=== PATIENT | female | born 1975 | race Caucasian/White ===

== ENCOUNTER 2024-06-15 17:47 | Observation (INO) | payer BC, SELFPAY ==
[2024-06-15] VITALS (8 sets, daily range): BP systolic 107–128; BP diastolic 54–82; BMI 30.1; BMI 31.6
[2024-06-15 14:11] LABS: % Basophils 0.9 % (0-2); % Eosinophils 2.1 % (0-6); % Immature Granulocytes 0.2 % (0-0.5); % Lymphocytes 41.5 % (20.5-51.1); % Monocytes 8.4 % (1.7-9.3); % Neutrophils 46.9 % (42.2-75.2); Absolute Basophils 0.1 10^3/uL (0-0.2); Absolute Eosinophils 0.1 10^3/uL (0-0.7); Absolute Lymphocytes 2.3 10^3/uL (1.2-3.4); Absolute Monocytes 0.5 10^3/uL (0.1-0.6); Absolute Neutrophils 2.6 10^3/uL (1.4-6.5); Hematocrit 40.2 % (37.0-47.0); Hemoglobin 13.9 g/dL (12.0-16.0); Mean Corp Hgb Conc. 34.6 g/dL (33.0-37.0); Mean Corpuscular Hgb 31.8 pg (27.0-31.0); Nucleated Red Blood Cells % 0 %; Platelet Count 215 10^3/uL (130-400); Red Blood Cell Count 4.37 10^6/uL (4.20-5.40); Red Cell Dist. Width 12.3 % (11.5-14.5); White Blood Cell Count 5.6 10^3/uL (4.8-10.8)
--- NOTE | 2024-06-15 14:14 | ED.GENMED ---
History of Present Illness
General
Chief Complaint: Back Pain
Source: patient
Exam Limitations: none
Time Seen by Provider: 06/15/24 13:28
Nursing documentation reviewed up to this point in time: agreed with
History of Present Illness
History of Present Illness:
49-year-old female with no reported chronic medical issues presents to the emergency room for evaluation of right arm pain, weakness, numbness as well as pain in the upper back. Patient reports that 2 weeks ago she started having some aching pain
in her right elbow in the absence of any trauma. She says that yesterday around 10 PM she started to notice pain in between her shoulder blades in her back and radiating down towards her fingertips in the right arm; she also has some mild pain in
the right side of her chest. She says that in addition to pain she says she feels significant weakness in the right arm and paresthesias. She says she feels some mild numbness in paresthesias in the right leg as well. She denies any palpitations.
She denies any shortness of breath. She denies any headache. She denies any change in her vision or speech. She denies any dizziness. No nausea or vomiting. She denies any neck pain. She denies having had similar symptoms in the past.
Past History
Past History
ED Past Medical History: None; Negative Asthma, HTN, Hypercholesterolemia or NIDDM
ED Past Surgical History: None
Social History
Tobacco: Non-smoker
Alcohol: Occasional
Personal:
Living: with family
Review of Systems
Review of Systems
All Other Systems: ROS reviewed and negative except as documented in HPI and ROS
Constitutional: Denies fever
Respiratory: Denies trouble breathing
Cardiac: Reports chest pain; Denies palpitations
ABD/GI: Denies abdominal pain, nausea or vomiting
: Denies flank pain
Musculoskeletal: Reports back pain; Denies edema or neck pain
Neurological: Reports weakness and numbness; Denies dizzy or headache
Phy Exam
Physical Exam
Physical Exam:
General: Awake, alert, oriented x3; no acute distress
Head: Normocephalic, atraumatic
Eyes: Conjunctiva normal, EOMI, pupils equal round and reactive to light bilaterally
Throat: Airway intact, handling secretions
Neck: Trachea midline, supple without meningismus, no tenderness in the cervical spine
Lungs: Clear to auscultation bilaterally, no wheezing, rales, rhonchi
Heart: Regular rate and rhythm, no murmurs, gallops, or rubs appreciated
Abd: Soft, non distended, nontender
Back: No midline tenderness in the thoracic or lumbar spine, mild tenderness medial aspect of the right scapula
Neuro: Cranial nerves intact 2 through 12, speech is fluid without dysarthria or aphasia, no limb ataxia, she does have weakness right upper and lower extremity�4+/5 proximally and distally right upper and lower extremity when compared to the left
upper and lower extremity which are both 5/5
Skin: no rash
Extremities: No edema in extremities, equal pulses in all extremities; she has no joint effusion in the right elbow, full range of motion without pain, no reproducible tenderness
Scores
NIH Stroke Score
Level of Consciousness: 0 - Alert
LOC Questions: 0-Answers both correctly
LOC Commands: 0-Performs both correctly
Best Horizontal Gaze: 0-Normal
Visual Shultz: 0=Normal, no visual loss
Facial Palsy: 0=Normal, symmetrical
Motor - Right Arm: 1=Drift < 10 seconds
Motor - Left Arm: 0=No drift 10 seconds
Motor - Right Le-Drift < 5 seconds
Motor - Left Le-No drift 5 seconds
Limb Ataxia: 0-Absent
Sensation: 0-Normal
Best Language: 0-No aphasia
Dysarthria: 0-Normal
Extinction and Inattention: 0-No abnormality
Total Score:: 2
Thrombolytic Contraindication
Inclusion and Exclusion criteria reviewed: Yes
Reasons for NON-Tx with Thrombolytics ABSOLUTE Exclusions: Greater than 4.5 hrs from onset of sxs
Heart Failure Risk
Heart Failure Risk Score: Not Applicable
Heart Score for Chest Pain Patients
STEMI patient?: Not applicable
Withdrawal Assessment of Alcohol
Withdrawal Assessment Completed?: Not applicable
Course
Orders/Labs/Results
Orders:
Orders
06/15/24 12:23
ECG [Electrocardiogram (*1)] Urgent
Reason for Study: Chest Pain
EKG- Treatment ONCE
06/15/24 13:32
CR Chest - 2 Views Urgent
Comment:
Reason For Exam: chest/scapular pain (right)
06/15/24 13:40
CT Head W/o Iv Contrast Urgent
Comment:
Reason For Exam: right sided weakness
06/15/24 13:42
NEUROLOGY CONSULT Urgent
Consulting Provider: Darren Chow
Was physician already notified: Yes
06/15/24 13:49
Complete Blood Count/With Diff Urgent
Comprehensive Metabolic Panel Urgent
D-Dimer Urgent
Troponin I Urgent
06/15/24 15:52
Clopidogrel Bisulfate [Plavix] 300 mg PO NOW STA
06/15/24 18:00
Atorvastatin [Lipitor] 40 mg PO QPM
06/16/24 08:00
Aspirin Low Dose EC [Aspir Low (Enteric Coated)] 81 mg PO DAILY
Clopidogrel Bisulfate [Plavix] 75 mg PO DAILY
Abnormal Lab Results
06/15/24
13:49
MCH 31.8 H pg
(27.0-31.0)
Carbon Dioxide 32 H mmol/L
(22-30)
06/15/24 13:49
06/15/24 13:49
Vital Signs
Initial and Last Documented VS:
Initial Vital Signs
Temp Pulse Resp BP Pulse Ox
36.5 C 71 16 121/72 99
06/15/24 12:29 06/15/24 12:29 06/15/24 12:29 06/15/24 12:29 06/15/24 12:29
Last Documented Vital Signs
Temp Pulse Resp BP Pulse Ox
36.5 C 67 21 109/73 96
06/15/24 12:29 06/15/24 16:00 06/15/24 16:00 06/15/24 16:00 06/15/24 16:00
MDM/Problems Addressed
Differential Diagnosis Includes:
Cervical/thoracic radiculopathy, atypical anginal symptom, PE, stroke, MS/demyelinating disease; very low clinical suspicion for aortic dissection
MDM/Problems Addressed:
49-year-old female presents for evaluation initially complaining of primarily pain in the back and arm but also disclosing weakness and paresthesias in the arm and the leg on the right. Vitals all normal. Physical exam as above�she does have some
subtle objective weakness in the right arm and the right leg. No other neurologic deficits noted. She had labs sent off including a CBC and a CMP which are pending. Added D-dimer and troponin. Check an EKG and a chest x-ray. Will check CT head.
Ostensibly symptoms could be from cervical or thoracic radiculopathy but right leg symptoms would be atypical. Somewhat lower concern for stroke given pain is a primary symptom but with objective unilateral weakness on exam I did discuss the case
with neurology for consultation. Monitor closely reassess after the above.
Labs reviewed: CBC and CMP unremarkable. D-dimer negative. Troponin undetectable. Chest x-ray reviewed by me shows no acute disease. CT head reviewed by me no acute disease. Case discussed with neurology who evaluated bedside and agree that
patient has weakness on the right side will treat with aspirin and Plavix admit to evaluate for possible CVA. Case discussed with hospitalist for admission.
*Radiology
Radiology exam reviewed: radiology read reviewed
*Pulse Oximetry
Patient hypoxic: no
*EKG
Interpreted by ED Provider?: Yes
Heart Rate: 71
Rate: normal
Rhythm: sinus
Newell: normal axis
Interval: normal interval
QRS Pattern: normal QRS
Ischemia: no ischemia
*Critical Care Note
Total Time (30-74mins, 75-104mins- exclusive of procedures): Not Applicable
Data Reviewed
Source: patient and records
Patient Management
Discussion with other providers: Hospitalist (Discussed with hospitalist) and Converting Operator (Discussed with neurologist)
Escalation/DeEscalation of care consider admission/obs:
Admission indicated
ED Attending Note
-
Portions of this chart may have been created with voice recognition software.� Occasional wrong word or��sound alike� substitutions may have occurred due to the inherent limitations of voice recognition software.
Discharge Plan
Departure
Patient Disposition: Admit
Date of Disposition: 06/15/24
Time of Disposition: 16:38
Admit to doctor: Mago
Presentation/result/management discussed w/ accepting MD/DO: Hospitalist
Discharge Problem:
CVA (cerebrovascular accident), Right arm pain
Prescriptions:
No Action
pantoprazole 40 MG tablet,delayed release (DR/EC)
40 mg PO DAILY Qty: 10 0RF
Referrals:
Vero Maurice PA [Family Provider] -
Interventions
Interventions:
*Risk Screen - Suicide Last Done: 06/15/24 12:29
*General Assessment Last Done: 06/15/24 12:29
*Neglect/Abuse Screening Last Done: 06/15/24 12:29
ED- Fall Risk Assessment Last Done: 06/15/24 13:29
*ED COVID-19 Vaccine History Last Done: 06/15/24 12:29
ED-Musculoskeletal Assessment Last Done: 06/15/24 13:46
Discharge Date and Time
Print Language: DJIBOUTIAN
[2024-06-15 14:26] LABS: ALT (SGPT) 34 U/L (0-35); AST (SGOT) 27 U/L (14-36); Albumin 4.4 g/dl (3.5-5.0); Alkaline Phosphatase 57 U/L (38-126); Blood Urea Nitrogen 14 mg/dl (7-17); Calcium 9.7 mg/dl (8.4-10.2); Carbon Dioxide 32 mmol/L (22-30); Chloride 104 mmol/L (98-107); Estimated Creatinine Clearance 75 ml/min; Glucose 85 mg/dl (70-99); Potassium 4.4 mmol/L (3.5-5.1); Sodium 142 mmol/L (135-145); Total Bilirubin 0.4 mg/dl (0.2-1.3); Total Protein 6.9 g/dl (6.3-8.2); eGFR > 60.00
[2024-06-15 14:27] LABS: D-Dimer 0.28 ug/mlFEU (0.00-0.50)
[2024-06-15 14:38] LABS: Troponin I < 0.012 ng/ml
--- NOTE | 2024-06-15 15:46 | CON.NEURO ---
Neuro Assessment/Plan
Assessment
mild right sided weakness since 10 pm last night
exam with subtle right sided weakness, right marionette line (below lip) flattening
concern is for lacunar stroke
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
load plavix 300
21 days of DAPT then stop plavix
Lipitor 40
admit for noncontrast MRI, MRA head/neck
not sure what to make of her right periscapular pain; no palpated trigger points or subluxation noted, and it doesn't seem to be a major part of the presentation
Consultation
Order
Date of Consultation: 06/15/24
Requesting Provider: Rome Zapata Jr
Reason for Consult: right sided weakness
Subjective/Objective
Subjective Data
Date of Service: June 15, 2024
She is a 49 year old right handed woman, 10 pm last night sudden pain around right shoulder blade, right upper extremity pain paresthesias and weakness, and right lower ext weakness.
today she reports today the pain is essentially resolved but she is still having the right sided weakness
she took full dose aspirin prior to coming to ED
Objective Data
Vital Signs
Temp Pulse Resp BP Pulse Ox
36.5 C 63 19 107/63 97
06/15/24 12:29 06/15/24 14:45 06/15/24 14:45 06/15/24 14:43 06/15/24 14:45
Lab Results
06/15/24 13:49
06/15/24 13:49
Sodium 142 mmol/L (135-145) 06/15/24 13:49
Potassium 4.4 mmol/L (3.5-5.1) 06/15/24 13:49
BUN 14 mg/dl (7-17) 06/15/24 13:49
Glucose 85 mg/dl (70-99) 06/15/24 13:49
Calcium 9.7 mg/dl (8.4-10.2) 06/15/24 13:49
Patient Allergies
No Known Allergies Allergy (Verified 06/15/24 12:32)
Physical Exam
-
AAO x3, speech clear, language intact
VFF, EOMI
flattening of right marionette line
trace RUE weakness, RLE weakness with foot drop
DTR 2+ symmetric
sensation intact touch pin temp vib
no tenderness right scapula/shoulder/paraspinal region
Elizabeth and Sena signs negative
Medications
-
Home Medications
�Medication �Instructions �Recorded
pantoprazole 40 mg tablet,delayed 40 mg PO DAILY Gastrointestinal 12/22/20
release issue #10 tabs
[2024-06-15] MEDS: PLAVIX 300 MG PO (16:55)
--- NOTE | 2024-06-15 17:06 | HPS.HSE ---
Family Physician
-
Family Physician: Vero Maurice
Chief Complaint
-
ight arm pain, weakness, numbneness
History of Present Illness
HPI
49F No significant PMHX seen at ER;
- evaluation of right arm pain, weakness, numbness as well as pain in the upper back.
- reports that 2 weeks ago, onset of aching pain in Rt elbow in the absence of any trauma.
- yesterday around 10 PM, noted pain inintra scapular region of the back and radiating downfingertips in the right arm
- some mild Rt sdied CP
- associated Prastheis in Rt UEx and Rt Meenakshi
- significant weakness in Rt UEx
She denies having had similar symptoms in the past.
ROS:
denies any palpitation
denies any shortness of breath
denies any headache.
denies any change in her vision or speech.
denies any dizziness.
denies any neck pain.
Medical History
Past Medical History
Past Medical History: Reports None
Past Surgical History: Reports None
Social History
Tobacco: Non-smoker
Alcohol: None
Family History
Family History: Not pertinent
Allergies / Home Medications
Allergies reflects when Allergies were last updated in [employer].
Home Medications with original date entered in [employer]
Allergy/Medication List:
Allergies
Allergy/AdvReac Type Severity Reaction Status Date / Time
No Known Allergies Allergy Verified 06/15/24 12:32
Home Medications
aspirin 325 mg tablet 650 mg PO DAILYPRN PRN arm pain 06/15/24
Review of Systems
-
Constitutional: Reports No Symptoms
EENT: Reports No Symptoms
Respiratory: Reports No Symptoms
Cardiac: Reports No Symptoms
Abdomen/GI: Reports No Symptoms
: Reports No Symptoms
Musculoskeletal: Reports No Symptoms
Skin: Reports No Symptoms
Neurological: Reports See HPI
Endocrine: Reports No Symptoms
Hematologic/Lymphatic: Reports No Symptoms
Psych: Reports No Symptoms
Physical Exam
Vital Signs
Vital Signs
Temp Pulse Resp BP Pulse Ox
97.7 F 67 21 109/73 96
06/15/24 12:29 06/15/24 16:00 06/15/24 16:00 06/15/24 16:00 06/15/24 16:00
Physical Exam
General: Well Developed, Well Nourished and No Apparent Distress
HEENT: NormoCephalic, Moist mucous membranes and Atraumatic
Respiratory: Clear
Cardiac: S1/S2 and Regular Rhythm; No Murmur or Rub
GI: Soft, Non Tender, Non Distended and Normal Bowel Sounds; No Organomegaly
Rectal: Deferred by Provider
Musculoskeletal: No Clubbing, No Cyanosis, No Edema and Other (no tenderness right scapula/shoulder/paraspinal region)
Skin: No Rash
Neuro: AO x 3, Nonfocal/grossly intact and Other (trace RUE weakness, )
Psych: Calm
Laboratory Results
-
06/15/24 13:49
06/15/24 13:49
Laboratory Results
Total Bilirubin 0.4 mg/dl (0.2-1.3) 06/15/24 13:49
AST 27 U/L (14-36) 06/15/24 13:49
ALT 34 U/L (0-35) 06/15/24 13:49
Alkaline Phosphatase 57 U/L (38-126) 06/15/24 13:49
Troponin I < 0.012 ng/ml 06/15/24 13:49
Data Reviewed
-
CT Scan: Report Reviewed by me
Lab Data: Labs Reviewed by me
Old Records: Reviewed
Impression/Plan
-
Reviewed VS: borderline hypotension 107/63
Data
Nl WCC
DD 0.28
CO 32
Nl Cr
NEG TPNI
EKG
NORMAL SINUS RHYTHM
NORMAL ECG
NO PREVIOUS ECGS AVAILABLE
Confirmed by YOLY VINES MD ([id number]) on 06/15/2024 2:01:21 PM
CXR: pending final report
HCT: No CT evidence for acute intracranial hemorrhage or transcortical infarction.
NO PRIOR hospitalist admission:
ASSESSMENT & PLAN
Rt sided weakness since 10 pm last night with subtle Rt sided weakness
- Seen by Neurologist and concern is for lacunar stroke
- she already took Aspirin LIBRARIAN ASSISTANT
- s/p load Plavix 300
- 21 days of DAPT then stop plavix
- Lipitor 40mf qpm
- for noncontrast MRI brain and MRA head/neck in AM
- Neuro seen and consulted
Acute intra scapular noy Rt > Lt periscapular pain
- no trigger points
- PRN analgesia wit Tylenol and Ultram
DVT Px: SCD
Full code
IP TLM
[2024-06-15] MEDS: LIPITOR 40 MG PO (21:47)
[2024-06-15] MEDS: TYLENOL 650 MG PO (21:47)
[2024-06-16 03:37] VITALS: BP 100/62
--- NOTE | 2024-06-16 07:19 | W.PN.HOSP.TC ---
Addendum entered and electronically signed by Kathy Salazar MD 06/16/24 15:40:
I saw and evaluated the patient independently. I reviewed the resident�s note and agree with findings and plan as documented by Dr. Winter.
GENERAL: well developed, well nourished, female in no apparent distress
HEENT: NC/AT
HEART: regular rate and rhythm, +S1, +S2
LUNGS : clear to auscultation bilaterally
ABDOM: soft, nontender, nondistended, + bowel sounds
EXT: no cyanosis, clubbing, or edema
NEUROLOGIC: grossly intact
Rt sided upper extremity weakness --concern for CVA--other etiology could be muscular (DJD, pinched nerve, etc)--heat CT neg--MRI neg--apprec neuro--cont asa/plavix x 21 days--cont lipitor--outpt neuro follow up
Upper back pain/intrascapular pain- PRN analgesia with Tylenol and Ultram
DVT Proph- SCD
code status--Full code
Original Note:
Today's Communication/Plan
-
Continue DAPT
Discharge pending
Assessment / Plan
Assessment / Plan
Impression: This is a 49-year-old female patient with no significant past medical history who presented to the ER with concerns of right upper extremity weakness/numbness along with pain in the upper back.
Assessment/plan:
#Rt sided upper extremity weakness
- Seen by Neurologist and concern is for lacunar stroke
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
-Neurology consulted
-Continue DAPT- 21 days of DAPT then stop plavix as per neurology
-Continue Lipitor
-MRI brain: No acute infarct seen
�MRA neck: No significant stenosis
-Concern for lacunar stroke, possible to be too small to show on MRI as per neurology
-Patient stable for discharge, follow-up outpatient with neurology and PCP, continuation of DAPT
#Upper back pain/intrascapular pain
- PRN analgesia with Tylenol and Ultram
DVT Px: SCD
Full code
Anticipated Discharge: Today
Subjective/Interval History
-
Date of Service: June 16, 2024
Patient does not have any new acute concerns of worsening weakness of extremities or slurred speech.
Objective Data
-
Vital Signs:
Vital Signs
Temp Pulse Resp BP Pulse Ox
97.7 F 65 20 100/62 97
06/16/24 03:37 06/16/24 03:37 06/16/24 03:37 06/16/24 03:37 06/16/24 03:37
Review of Systems
-
All other systems: Reviewed and negative
Musculoskeletal: Reports Other (Mild right upper extremity weakness)
Physical Exam
-
General: No Apparent Distress; Negative Slurred Speech
HEENT: Normocephalic
Respiratory: Clear to Auscultation
Cardiac: Regular Rhythm and S1/S2; Negative Murmur
GI: Soft, Nontender and Nondistended
Musculoskeletal: No Edema
Skin: Warm, Dry and Rash
Neuro: Awake, Alert and Oriented
Psych: Calm
[2024-06-16 07:35] VITALS: BP 120/74
[2024-06-16] MEDS: PLAVIX 75 MG PO (08:17)
[2024-06-16] MEDS: ASPIR LOW (ENTERIC COATED) 81 MG PO (08:17)
[2024-06-16 08:51] LABS: HDL Cholesterol 74 mg/dl; LDL Cholesterol, Calculated 119 mg/dl; Total Cholesterol 209 mg/dl (50-199); Triglyceride 84 mg/dl (10-149); Very Low Density Lipoprotein 16 mg/dl (0-30)
[2024-06-16 11:23] VITALS: BP 130/66
[2024-06-16] MEDS: TYLENOL 650 MG PO (12:28)
[2024-06-16 12:37] VITALS: BP 131/81; PULSE 66; O2SAT 96
--- NOTE | 2024-06-16 13:55 | W.PN.NEURO.1 ---
Today's Communication / Plan
-
would continue 21 days of DAPT, lipitor 40
ok to discharge
Neuro Assessment/Plan
Assessment
Brain MRI imgs reviewed, negative for stroke.
neck MRA no significant stenosis
HDL 74, LDL 119
mild right sided weakness >24 hours
exam with subtle right sided weakness
concern is for lacunar stroke, with relatively subtle exam findings can be too small to show on MRI
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
would still continue 21 days of DAPT then stop plavix
Lipitor 40
admit for noncontrast MRI, MRA head/neck
not sure what to make of her right periscapular pain; no palpated trigger points or subluxation noted, and it doesn't seem to be a major part of the presentation
Subjective/Objective
Subjective Data
Date of Service: June 16, 2024
patient reports still having some right upper extremity weakness
Objective Data
Vital Signs
Temp Pulse Resp BP Pulse Ox
36.9 C 83 18 130/66 98
06/16/24 11:23 06/16/24 11:23 06/16/24 11:23 06/16/24 11:23 06/16/24 11:23
Lab Results
06/15/24 13:49
06/15/24 13:49
Sodium 142 mmol/L (135-145) 06/15/24 13:49
Potassium 4.4 mmol/L (3.5-5.1) 06/15/24 13:49
BUN 14 mg/dl (7-17) 06/15/24 13:49
Glucose 85 mg/dl (70-99) 06/15/24 13:49
Calcium 9.7 mg/dl (8.4-10.2) 06/15/24 13:49
LDL Cholesterol, Calc 119 mg/dl 06/16/24 07:25
Patient Allergies
No Known Allergies Allergy (Verified 06/15/24 12:32)
Physical Exam
-
AAO x3, speech clear, language intact
VFF, EOMI
face symmetric
trace RUE weakness, RLE weakness with foot drop
DTR 2+ symmetric
sensation intact touch pin temp vib
no tenderness right scapula/shoulder/paraspinal region
Elizabeth and Sena signs negative
--- NOTE | 2024-06-16 15:03 | CM ---
Pt is (I) amb and adls; no needs identified.
Plan: Discharrge to home with no needs.
[2024-06-16 15:18] VITALS: BP 122/84
--- NOTE | 2024-06-16 15:24 | W.DCSUMMARY ---
Addendum entered and electronically signed by Kathy Salazar MD 06/16/24 15:42:
Read, reviewed, and agree. See same day progress note for additional details. Time spent coordinating care, DC planning, review of DC plan of care with resident, transition of care, review of records in EMR, med rec, consults, notes, d/w
consultants, nursing, family, and CM = 25 minutes
Original Note:
Discharge Summary
Discharge Data
Date of Admission: 06/15/24
Date of Discharge: 06/16/24
-
Pending Results: No
Hospital Course
Discharging Physician : ,
Disposition : Home
Primary care physician : Vero SKAGGS
Principal Discharge diagnosis : Right sided upper extremity weakness with concern for lacunar stroke
Chronic Discharge diagnosis : No significant past medical history
Hospital Course : This is a 49-year-old female patient with no significant past medical history who presented to the ED with concerns of right upper arm extremity weakness/numbness that started the night before. Patient is already taking aspirin
prior to admission. Neurology was consulted and CT head was ordered which did not show any acute intracranial hemorrhage or infarction. Due to concern for stroke, patient was admitted and started on Plavix/statin/aspirin. Subtle right-sided
weakness was present. MRI brain and MRA neck was done which showed no acute stroke and no significant stenosis respectively. Since concern of stroke with possibility of being too small to be shown on imaging, dual antiplatelet therapy was
recommended to be continued for 21 days. Patient is stable for discharge with instructions to continue dual platelet therapy for 21 days and follow-up with neurologist and PCP outpatient.
Important imaging findings :
1/ CT head: No acute intracranial hemorrhage or infarction
06/16 Brain MRI: No acute stroke
1 Neck MRA: No significant stenosis/normal
Discharge Plan
-
Patient Disposition: Home (Routine Discharge)
Discharge Diagnosis/Procedures: Mild right-sided weakness-concern for lacunar Stroke
Diet: Low Cholesterol
Activity: No restrictions
Driving Restrictions: As prior to admission
Bathing Restrictions: OK to Shower
Activity Restrictions/Additional Instructions:
If experiencing any symptoms such as worsening extremity weakness, slurred speech or facial droop please return to the ER.
Please follow-up with your primary care provider in a week along with follow-up with neurologist.
Referrals:
Vero Maurice PA [Family Provider] - in one week
Darren Chow MD [Active] - in one week (Please follow up with the [facility] neurologist group in a week.)
Prescriptions:
New
aspirin 81 mg Tablet,Delayed Release (Dr/Ec)
81 mg PO DAILY 30 Days Qty: 30 0RF
atorvastatin 40 mg Tablet
40 mg PO QPM 30 Days Qty: 30 0RF
clopidogrel 75 mg Tablet
75 mg PO DAILY 20 Days Qty: 20 0RF
Discontinued
aspirin 325 mg Tablet
650 mg PO DAILYPRN PRN (Reason: arm pain)
Discharge Orders:
Discharge Patient (As Directed); Ordered 06/16/24
Ordered By: Mary Winter
Discharge Date and Time
Print Language: BENGALI
== END 2024-06-16 15:52 | disposition home or self-care (01) ==
LOC: 4 EAST ACU 17:47
PROVIDERS: Student in an Organized Health Care Education/Training Program; ADMITTING PHYSICIAN Internal Medicine; ATTENDING PHYSICIAN Internal Medicine; CONSULT PHYSICIAN Psychiatry & Neurology Clinical Neurophysiology; EMERGENCY PHYSICIAN Emergency Medicine; FAMILY PHYSICIAN Nurse Practitioner Adult Health
DX: R53.1 Weakness (principal); M25.511 Pain in right shoulder; M79.601 Pain in right arm; M79.641 Pain in right hand; M79.604 Pain in right leg; M25.521 Pain in right elbow; M54.6 Pain in thoracic spine; R20.0 Anesthesia of skin; R07.89 Other chest pain
CPT/HCPCS: 70450; 70548; 70551; 71046; 80053; 80061; 84484; 85025; 85379; 93005; 97162; 99285; A9585; G0378

== ENCOUNTER → 2024-07-29 13:21 | Outpatient (REF) | payer BC, SELFPAY | LOC: PAVMRI 13:21 | PROVIDERS: ATTENDING PHYSICIAN Psychiatry & Neurology Neurology; FAMILY PHYSICIAN Nurse Practitioner Adult Health | DX: R29.898 Other symptoms and signs involving the musculoskeletal system (principal) | CPT/HCPCS: 72156; A9575 ==

== ENCOUNTER → 2024-08-19 13:48 | Outpatient (REF) | payer BC, SELFPAY | LOC: EMG 13:48 | PROVIDERS: ATTENDING PHYSICIAN Psychiatry & Neurology Neurology; FAMILY PHYSICIAN Nurse Practitioner Adult Health | DX: R20.0 Anesthesia of skin (principal) | CPT/HCPCS: 95886; 95911 ==

== ENCOUNTER 2025-05-25 19:04 | Emergency (ER) | payer BC, SELFPAY ==
[2025-05-25] VITALS (12 sets, daily range): BP systolic 103–126; BP diastolic 47–86; BMI 30.7
--- NOTE | 2025-05-25 20:42 | ED.MUSCINJ ---
HPI-Injury
<HORACE Prery Last Filed: 05/25/25 22:32>
General
Chief Complaint: Musculo-Skeletal Complaint
Source: patient
Exam Limitations: none
Time Seen by Provider: 05/25/25 20:10
History of Present Illness-Injury
Initial Injury comments:
49-year-old [id number] female presents with right wrist pain. She slipped and fell on the ice stopping her fall with her hand. The pain is also in her elbow and shoulder on the right side. No head strike. No chest pain or shortness of
breath. She notes swelling and deformity to the wrist. No other complaints at this time
Past History
<HORACE Perry Last Filed: 05/25/25 22:32>
Past History
ED Past Medical History: None; Negative Asthma, HTN, Hypercholesterolemia or NIDDM
ED Past Surgical History: None
Social History
Tobacco: Non-smoker
Alcohol: Occasional
Personal:
Living: with family
Phy Exam
<HORACE Perry Last Filed: 05/25/25 22:32>
Physical Exam
Physical Exam:
General: Well-appearing female no acute respiratory distress
HEENT normal cephalic atraumatic
Musculoskeletal exam: Right wrist is swollen and deformed and tender over the distal radius the elbow is slightly diffusely tender without deformity. The right shoulder is nontender with good range of motion
Neurologic: Good sensation right hand
Vascular: 2+ radial pulse right wrist with brisk Apley refill to the fingers
Injury Course
<HORACE Perry Last Filed: 05/25/25 22:32>
Orders/Labs/Results
Orders:
Orders
05/25/25 19:08
CR Wrist - Right Min 3 Views Urgent
Comment:
Reason For Exam: pain
Shoulder, Right, Trauma [CR Shoulder, Trauma - Right] Urgent
Comment:
Reason For Exam: pain
05/25/25 19:26
Elbow, Right 3 View [CR Elbow - Right Min 3 Views] Urgent
Comment: PER XRAY
Reason For Exam: FALL
05/25/25 20:37
Propofol [Diprivan] 20 ml .ROUTE .STK-MED
05/25/25 21:13
CR Wrist - Right Min 2 Views Urgent
Comment: portable
Reason For Exam: post reduction
05/25/25 21:43
HYDROmorphone [Dilaudid] 0.5 mg IV NOW STA
<Radha Chapman MD - Last Filed: 05/25/25 21:15>
Orders/Labs/Results
Orders:
Orders
05/25/25 19:08
CR Wrist - Right Min 3 Views Urgent
Comment:
Reason For Exam: pain
Shoulder, Right, Trauma [CR Shoulder, Trauma - Right] Urgent
Comment:
Reason For Exam: pain
05/25/25 19:26
Elbow, Right 3 View [CR Elbow - Right Min 3 Views] Urgent
Comment: PER XRAY
Reason For Exam: FALL
05/25/25 20:37
Propofol [Diprivan] 20 ml .ROUTE .STK-MED
05/25/25 21:13
CR Wrist - Right Min 2 Views Urgent
Comment: portable
Reason For Exam: post reduction
05/25/25 21:43
HYDROmorphone [Dilaudid] 0.5 mg IV NOW STA
Procedures
<Gianluca Sharma PA-C - Last Filed: 05/25/25 22:32>
Moderate Sedation
ASA Risk Score: Class I
Chart and allergies reviewed: Yes
Consent for anesthesia obtained: Yes
Time out completed (validating right patient & procedure): Yes
Moderate Sedation Start Time(when first medication is given): 21:02
History of difficult intubation: No
Airway free of obstruction: Yes
Patient has a gag reflex: Yes
Patient is able to open mouth: Yes
Patient has no dentures: Yes
Patient has no loose teeth: Yes
Medication administered by Provider during Moderate Sedation: IV Propofol (mg)
Total dose administered: 160
Time drug administered: :
Moderate Sedation Procedure End Time: 21:20
<Gianluca Sharma PA-C - Last Filed: 05/25/25 22:32>
MDM/Problems Addressed
Differential Diagnosis Includes:
Mechanical fall with right wrist pain and deformity. Consider sprain versus fracture versus dislocation. I personally visualized x-rays of the right wrist which demonstrate nearly 100% displaced and angulated comminuted distal radius fracture.
The elbow and shoulder were visualized on x-ray personally and these are negative for acute finding. Patient in considerable pain. Do not feel she be a good candidate for hematoma block and reduction. Consent was obtained for sedation using
propofol.
<Gianluca Sharma PA-C - Last Filed: 05/25/25 22:32>
*Pulse Oximetry
SaO2: 98
Oxygen Mode of Delivery: Room air
Patient hypoxic: no
*Critical Care Note
Total Time (30-74mins, 75-104mins- exclusive of procedures): Not Applicable
<Gianluca Sharma PA-C - Last Filed: 05/25/25 22:32>
Update Note
Update Note:
Initial x-rays did demonstrate displaced and angulated distal radius fracture. Written consent obtained for moderate sedation and reduction. Risks and benefits of this were performed and discussed. Moderate sedation performed by emergency room
attending. Total of 160 mg propofol required the reduction was performed using hyperextension of the wrist with longitudinal traction and dorsal pressure. A sugar-tong splint was applied by this provider using cast padding 2 inch OCL and Ron
bandages. She was neurovascular intact after the splint was applied. Postreduction films demonstrate a significantly improved alignment of the fracture site.
ED Attending Note
<Gianluca Sharma PA-C - Last Filed: 05/25/25 22:32>
-
Portions of this chart may have been created with voice recognition software.� Occasional wrong word or��sound alike� substitutions may have occurred due to the inherent limitations of voice recognition software.
<Radha Chapman MD - Last Filed: 05/25/25 21:15>
ED Attending Note
Patient seen and examined by attending physician: Yes
I performed the substantive portion of visit, reviewed & personally made and approve the management plan that is documented in note by myself or RASHI.: Yes
ED Attending Note:
I have seen and evaluated the patient with a [id number] encounter. I have spoken to the [RASHI] and involved in the medical history, the physical exam, medical decision making.
Evaluation and management service: agree unless noted differently below.
Results interpretation: agree unless noted differently below.
49-year-old woman presenting to the emergency department after slip and fall on ice. She landed on her right wrist. Pain to the wrist and right shoulder. On my evaluation patient appears well. She has an obvious deformity to her right wrist.
Neurovascularly intact. X-ray per my interpretation with comminuted distal radius fracture. Patient did require sedation for fracture reduction. Patient tolerated procedure well. Will discharge with Ortho follow-up
Discharge Plan
Departure
Patient Disposition: Home (Routine Discharge)
Date of Disposition: 05/25/25
Time of Disposition: 22:29
Patient with high blood pressure during this ER visit?: No
Discharge Problem:
Distal radius fracture
Instructions: How to care for a splint, MODERATE SEDATION ADULT
Prescriptions:
New
oxycodone-acetaminophen [Percocet] 5-325 mg tablet
1 tab PO TID PRN (Reason: Pain) Qty: 10 0RF
No Action
aspirin 81 mg Tablet,Delayed Release (Dr/Ec)
81 mg PO DAILY 30 Days Qty: 30 0RF
atorvastatin 40 mg Tablet
40 mg PO QPM 30 Days Qty: 30 0RF
clopidogrel 75 mg Tablet
75 mg PO DAILY 20 Days Qty: 20 0RF
Referrals:
Luz Loza I., DO [Active, Orthopedics]
Vero Maurice PA [Family Provider]
Activity Restrictions/Additional Instructions:
Keep splint on and dry. Use pain medicine as needed for severe pain. Follow-up orthopedics for next available appointment
Interventions
Interventions:
*Risk Screen - Suicide Last Done: 05/25/25 19:06
*General Assessment Last Done: 05/25/25 20:13
*Neglect/Abuse Screening Last Done: 05/25/25 19:06
*ED COVID-19 Vaccine History Last Done: 05/25/25 20:13
*ED Influenza Vaccine History Last Done: 05/25/25 20:13
[facility] Fall Risk Assessment Tool Last Done: 05/25/25 20:13
ED-Musculoskeletal Assessment Last Done: 05/25/25 20:13
ED- Neurological Assessment Last Done: 05/25/25 20:13
ED-Skin Assessment Last Done: 05/25/25 20:13
Discharge Date and Time
Print Language: GAMBIAN
[2025-05-25] MEDS: DILAUDID 0.5 MG IV (21:50)
== END 2025-05-25 22:40 | disposition home or self-care (01) ==
LOC: EMR 19:04
PROVIDERS: EMERGENCY PHYSICIAN Student in an Organized Health Care Education/Training Program; FAMILY PHYSICIAN Nurse Practitioner Adult Health
DX: S52.501A Unspecified fracture of the lower end of right radius, initial encounter for closed fracture (principal); W00.0XXA Fall on same level due to ice and snow, initial encounter
CPT/HCPCS: 99285; 96374; 25605; 73030; 73080; 73100; 73110